=== PATIENT | female | born 1990 | race African-American/Black ===

== ENCOUNTER 2017-03-04 17:08 | Emergency (ER) | payer OTHER, SELFPAY ==
--- NOTE | 2017-03-04 18:20 | RAD ---
EXAM: CHEST TWO VIEWS 03/04/17 HISTORY: Cough and congestion. COMPARISON: None. FINDINGS: Normal cardiac silhouette. Pulmonary vessels and hilum are normal. The costophrenic angles are clear . No masses. No consolidation. No pneumothorax or osseous abnormalities. IMPRESSION: No acute cardiopulmonary process. POS: [facility]
== END 2017-03-04 18:30 | disposition home or self-care (01) ==
LOC: ERS 17:08
DX: J20.9 Acute bronchitis, unspecified (principal); Z87.891 Personal history of nicotine dependence
CPT/HCPCS: 71020; 94640; J7620

== ENCOUNTER 2017-06-02 22:42 | Emergency (ER) | payer SELFPAY ==
[2017-06-02] MEDS ORDERED: Acetaminophen 500 MG TAB ONE (22:57)
--- NOTE | 2017-06-02 23:40 | RAD ---
TWO VIEW CHEST: 06/02/17 HISTORY: Dyspnea and cough. Lung siddiqi appear clear. No evidence of infiltrate. Heart and mediastinum unremarkable. IMPRESSION: No acute abnormality. POS: [facility]
== END 2017-06-02 23:46 | disposition home or self-care (01) ==
LOC: ERS 22:42
DX: J20.9 Acute bronchitis, unspecified (principal)
CPT/HCPCS: 71046; 94640; J7620